=== PATIENT | male | born 1965 | race Caucasian/White ===

== ENCOUNTER 2020-11-05 08:52 | Inpatient (IN) | payer BC ==
[~2020-11-05] VITALS: Ht 182.9 cm; Wt 62.3 kg
[2020-11-30] VITALS (11 sets, daily range): BP systolic 114–147; BP diastolic 62–92; PULSE 66–78; TEMP 97.9–98.9
[2020-11-30] MEDS ORDERED: ZYRTEC 10MG10 MG PO (06:46)
[2020-11-30] MEDS ORDERED: DESYREL DIVIDO150 M1 PO (06:48)
[2020-11-30] MEDS ORDERED: COLACE 100100 MG/CAP PO (06:49)
[2020-11-30] MEDS ORDERED: RHINOCORT0.032 MG/1 NS (06:49)
[2020-11-30] MEDS ORDERED: ALEVE 220MG220 MG PO (06:50)
[2020-11-30] MEDS ORDERED: ADVIL200 MG PO (06:50)
[2020-11-30] MEDS ORDERED: EPA FISH OIL1 SGL PO (06:51)
--- NOTE | 2020-11-30 13:05 | NUR ---
PATIENT ARRIVED TO ROOM 328 VIA BED FROM PACU. PATIENT IS DROWSY BUT AWAKES EASILY. POST-OP VSS. ABDOMINAL LAP SITES X5 BAUTISTA WITH EDGES WELL APPROXIMATED. LEFT-SIDED ABDOMINAL TASHI DRAIN TO BULB SUCTION WITH BLOODY DRAINAGE PRESENT IN TASHI BULB. TASHI GAUZE & TEGADERM DRESSING ARE CD&I. SNOW CATHETER TO DEPENDENT DRAINAGE WITH REDDISH HAZY URINE PRESENT IN SNOW BAG. PATIENT TOLERATING CLEAR LIQUIDS. PRESENT IN ROOM. CALL LIGHT WITHIN REACH. NO NEEDS AT THIS TIME.
--- NOTE | 2020-11-30 16:50 | NUR ---
PATIENT POST-OP VSS AND COMPLETE. PATIENT REPORTING MILD ABDOMINAL DISCOMFORT AT THIS TIME, BUT DENIES NEED FOR PRN MEDICATION AT THIS TIME. DIET ADVANCED TO GENERAL FOR DINNER.
--- NOTE | 2020-11-30 17:15 | NUR ---
UPON ENTERING THE ROOM WITH GLADIS PANDEY THE PATIENT STATED HE WAS AWARE OF HIS CATHETER AND FELT THE NEED TO URINATE. PATIENT EDUCATED ON NORMAL SENSATION WITH CATHETERIZATION. STAT LOCK REPOSITIONED TO RIGHT LEG. CATHETER AND LEG BAG TEACHING INITIATED WITH PATIENT AND . QUESTIONS SOUGHT AND ANSWERED. SCROTAL SWELLING NOTED AND ELEVATED WITH HAND TOWEL AND PILLOWCASE. TASHI DRAIN TO BULB SUCTION AND ATTACHED TO GOWN WITH SAFETY PIN. SCANT AMOUNT OF SHADING PRESENT ON TASHI DRAIN DRESSING. PATIENT SAT UP IN BED FOR DINNER. PATIENT EDUCATED ON ERAS PROTOCOL. PATIENT REPORTING PAIN IS WELL CONTROLLED WITH CURRENT REGIMEN. PATIENT TO GET UP AFTER DINNER. WILL REPORT OFF TO NIGHT NURSE.
--- NOTE | 2020-11-30 19:01 | NUR ---
PATIENT REPORTING THAT THE LEFT SIDE OF HIS TONGUE IS NUMB AND TINGLING. FACIAL SENSATION NORMAL. SMILE SYMMETRICAL. PATIENT DENIES NUMBNESS OR TINGLING ANYWHERE ELSE IN THE BODY. CALLED AND MESSAGE LEFT.
--- NOTE | 2020-11-30 21:00 | NUR ---
Pt. sitting up in chair at this time. Pt. is A&OX3, assessment complete. IV to lt. hand patent. Abd. lap incisions CDI. TASHI noted with minimal bloody drainage at this time. Pt. denies pain. Pt. would like to ambulate. RADHA Acosta assist pt. with this. Pt. denies further needs, call light within reach.
[2020-12-01 04:17] VITALS: BP 118/61; PULSE 69; TEMP 98.5
[2020-12-01 06:48] LABS: HEMOGLOBIN 12.7 g/dl (13.5-18.0)
[2020-12-01 06:52] LABS: CREATININE, serum 0.95 (0.66-1.25); POTASSIUM 3.6 mmol/L (3.4-5.0)
[2020-12-01 07:59] VITALS: BP 119/69; PULSE 75; TEMP 98.1
--- NOTE | 2020-12-01 08:06 | NUR ---
Patient sitting up in chair. We were up and ambulated the halls. He did well, steady gait. Patient given written education on mayo to start reviewing in anticipation of discharge. Patient ordered breakfast, denies nausea. Denies yet passing flatus, but bowels audible. Hari drain to compression. Lap sites edges well approximated, open to air. Scds. ivf. Will monitor.
--- NOTE | 2020-12-01 10:44 | NUR ---
First visit from the purchasing assistant. No needs right now.
--- NOTE | 2020-12-01 12:04 | NUR ---
Patient sitting up in chair. He and his ambulated the halls. -*/ Danyell kellogg.
--- NOTE | 2020-12-01 14:42 | NUR ---
Patient tolerated lunch. We again reviewed mayo cares. He is wanting to rest prior to discharge. His supportive at bedside will monitor.
[2020-12-01 15:23] VITALS: BP 122/68; BP 135/72; PULSE 86; PULSE 90; TEMP 98.4; TEMP 99.3
--- NOTE | 2020-12-01 15:40 | NUR ---
Patient ready for discharge. Int dc. He continues to manage mayo independently. Still a little anxious about discharge, positive encouragement given. Patient ambulated out with all belongings. His taking him home
== END 2020-12-01 15:46 | disposition home or self-care (01) | DRG 708 ==
LOC: INPTSU 11-30 05:26 → SURG 11-30 07:30
PROVIDERS: ADMIT Urology
PROC: 07TC4ZZ Resection of Pelvis Lymphatic, Percutaneous Endoscopic Approach (ICD-10-PCS; 2020-11-30)
PROC: 8E0W4CZ Robotic Assisted Procedure of Trunk Region, Percutaneous Endoscopic Approach (ICD-10-PCS; 2020-11-30)
PROC: 0VT04ZZ Resection of Prostate, Percutaneous Endoscopic Approach (ICD-10-PCS; principal; 2020-11-30 07:30)
DX: C61 Malignant neoplasm of prostate (principal); N40.0 Benign prostatic hyperplasia without lower urinary tract symptoms; F32.9 Major depressive disorder, single episode, unspecified; Z88.0 Allergy status to penicillin
CPT/HCPCS: A4314; A9284; J0690; J1885; J2250; J2405; J2704; J3010; J7120

== ENCOUNTER 2021-07-07 01:45 | Emergency (ER) | payer BC ==
[~2021-07-07] VITALS: Ht 182.9 cm; Wt 100.0 kg
[2021-07-07 01:01] VITALS: TEMP 97.7
[~2021-07-07 01:45] MED LIST: ADVIL200 MG PO; ALEVE 220MG220 MG PO; COLACE 100100 MG/CAP PO; DESYREL DIVIDO150 M1 PO; EPA FISH OIL1 SGL PO; RHINOCORT0.032 MG/1 NS; ZYRTEC 10MG10 MG PO
[2021-07-07 01:56] LABS: EOS # 0.2 K/mm3 (0.0-0.7); GRAN # 9.3 K/mm3 (1.4-6.5); GRAN % 77.9 % (42.2-75.2); LYMPH # 1.2 K/mm3 (1.2-3.4); LYMPH % 9.8 % (20.0-51.0); MEAN CELL VOLUME 79 fl (80.0-100.0); MEAN CORPUSCULAR HEMOGLOBIN 27 pg (27.0-31.0); MEAN CORPUSCULAR HGB CONC 34 g/dl (33.0-37.0); MEAN PLATELET VOLUME 9.1 fl (7.4-10.4); MONO # 1.1 K/mm3 (0.1-0.6); MONO % 9.5 % (1.7-9.3); PLATELET COUNT 202 K/mm3 (130-400); RED BLOOD COUNT 5.56 M/mm3 (4.20-5.60); REDCELL DISTRIBUTION WIDTH-CV 14.2 % (11.5-14.5)
[2021-07-07 02:03] LABS: BASO # 0.1 K/mm3 (0.0-0.2); BASO % 0.5 % (0.0-2.0); EOS % 1.8 % (0-4.0)
[2021-07-07 02:12] LABS: INR 1.1 (0.8-3.0)
[2021-07-07 02:45] LABS: ANION GAP 12 mmol/L (7-16); BLOOD UREA NITROGEN 14 mg/dL (9-20); CALCIUM 9.5 mg/dL (8.4-10.2); CARBON DIOXIDE 21 mmol/L (22-30); CHLORIDE 107 mmol/L (98-107); CREATININE, serum 1.01 mg/dL (0.72-1.25); GLUCOSE 96 mg/dL (74-106); POTASSIUM 3.9 mmol/L (3.4-5.0); SODIUM 140 mmol/L (137-145); TOTAL PROTEIN 7.6 gm/dL (6.4-8.2)
[2021-07-07 02:46] LABS: ALANINE AMINOTRANSFERASE 25 U/L (4-49); ALBUMIN 4.3 gm/dL (3.5-5.0); ALKALINE PHOSPHATASE < 5 U/L (50-136); AST,SGOT 25 U/L (15-37); BILIRUBIN,TOTAL 0.5 mg/dL (0.2-1.2); CREATINE KINASE 137 U/L (55-170); LIPASE 49 U/L (8-78); TROPONIN-I 0.017 ng/mL (0.00-0.033)
[2021-07-07 06:56] VITALS: BP 134/81; PULSE 101
== END 2021-07-07 07:05 | disposition home or self-care (01) ==
LOC: COL.ER 01:45
PROVIDERS: Emergency Medicine
DX: R07.89 Other chest pain (principal); R79.1 Abnormal coagulation profile
CPT/HCPCS: J1885; J7030; Q9967

== ENCOUNTER → 2021-10-09 | Outpatient (CLI) | payer BC | LOC: COL.RAD 11:30 | DX: R79.89 Other specified abnormal findings of blood chemistry (principal) | CPT/HCPCS: Q9967 ==